=== PATIENT | male | born 1995 | race Caucasian/White ===

== ENCOUNTER 2020-11-12 15:03 | Emergency (ER) | payer BC, SELFPAY ==
[2020-11-12] VITALS (7 sets, daily range): BP systolic 115–131; BP diastolic 72–79; PULSE 106–122; RESP 18–24; TEMP 37.1; O2SAT 97–100; BMI 24.0
--- NOTE | 2020-11-12 15:06 | ECG_ITS ---
APPROVED REPORT Exam: Resting ECG HR:119 bpm ECG Measurements Heart Rate 119 AXES AR 138 P 65 QRSd 74 QRS 86 QT 304 T 58 QTc 427 Conclusion Sinus tachycardia Possible Left atrial enlargement Borderline ECG Electronically signed by : Chris Holguin, 11/14/2020 21:24:07
--- NOTE | 2020-11-12 15:22 | HMH.EDGENADL ---
ED Disposition Clinical Impression: Atypical chest pain, Sinus tachycardia Disposition: Home, Self-Care Condition on Discharge: Good Instructions: DI for Atypical Chest Pain Additional Instructions: [id number] Prilosec daily for 1 week. Additional instructions for CHEST PAIN: See your physician as soon as possible for further evaluation. Return immediately if worsening chest pain, vomiting, shortness of breath, fever, coughing of blood. Referrals: PCP,No [Primary Care Provider] - - Critical Care Critical Care Time: No Attestation: On , the high probability of a clinically significant, sudden or life threatening deterioration of the following system(s) required my full and direct attention, intervention and personal management. The time I documented below is in addition to time spent performing reported procedures but includes the following listed in this critical care notation. Medical Decision Making - Michele Inquiry Pt receiving controlled substance: No Vital Signs: 11/12/20 15:06 11/12/20 15:35 11/12/20 16:00 Temperature 98.7 F Temperature Source Oral Pulse Rate 121 H 114 H Pulse Rate [Left Radial] 122 H Respiratory Rate 18 19 21 Blood Pressure Blood Pressure [Right Arm] 131/78 Blood Pressure Mean Blood Pressure Mean [Right Arm] 95 Blood Pressure Source [Right Arm] Automatic Cuff Blood Pressure Position [Right Arm] Sitting 02 Sat by Pulse Oximetry 99 98 97 Oxygen Delivery Method Room Air 11/12/20 16:34 11/12/20 16:59 11/12/20 17:30 Temperature Temperature Source Pulse Rate 113 H 122 H 112 H Pulse Rate [Left Radial] Respiratory Rate 23 22 Blood Pressure 115/72 128/79 123/76 Blood Pressure [Right Arm] Blood Pressure Mean 86 92 88 Blood Pressure Mean [Right Arm] Blood Pressure Source [Right Arm] Blood Pressure Position [Right Arm] 02 Sat by Pulse Oximetry 100 100 99 Oxygen Delivery Method - Lab Data Lab Results 11/12/20 15:20: WBC 10.0, RBC 5.48, Hgb 17.3, Hct 50.7, MCV 92.5, MCH 31.5 H, MCHC 34.0, RDW 12.7, Plt Count 170, MPV 8.0, Neut % (Auto) 93.4 H, Lymph % (Auto) 3.5 L, [place] % (Auto) 2.5, Eos % (Auto) 0.4, Baso % (Auto) 0.2, Neut # (Auto) 9.3 H, Lymph # (Auto) 0.4 L, [place] # (Auto) 0.3, Eos # (Auto) 0.0, Baso # (Auto) 0.0, Total Counted 100, Neutrophils % (Manual) 93 H, Band Neutrophils % 1.0, Lymphocytes % (Manual) 4 L, Monocytes % (Manual) 2, Platelet Estimate Normal, RBC Morphology Normal 11/12/20 15:20: D-Dimer 0.62 H 11/12/20 15:20: Sodium 139, Potassium 4.3, Chloride 102, Carbon Dioxide 28, Anion Gap 13.3, BUN 21 H, Creatinine 0.90, Estimated Creat Clear 115, Estimated GFR 105, Est GFR ( Amer) 127, Glucose 126 H, Calcium 9.5, Troponin I < 0.01 11/12/20 15:20: TSH 0.82, Free T4 Index 3.5 L, Thyroxine (T4) 11.8 H, T3 Uptake 30 Result diagrams: 11/12/20 15:20 11/12/20 15:20 Orders (Tests/Meds): ED MEDICATIONS Discontinued Medications Generic Name Dose Route Start Last Admin Trade Name Freq PRN Reason Stop Dose Admin Iopamidol 70 ml 11/12/20 16:28 11/12/20 16:30 Iopamidol-370 (76%);100ml Bottle IV 11/12/20 16:29 70 ml ONCE ONE Administration Iopamidol 40 ml 11/12/20 16:28 11/12/20 16:30 Iopamidol-300 (61%) 50ml Vial IV 11/12/20 16:29 40 ml ONCE ONE Administration Protocol Sodium Chloride 10 ml 11/12/20 16:28 11/12/20 16:30 Sodium Chloride 0.9% 10ml Syr (Rad Only) IV 11/12/20 16:29 10 ml ONCE ONE Administration ORDERS Category Date Time Status Covid-19 Nasal PCR (H) Routine Lab 11/12/20 15:47 Received Troponin I Q3H Lab 11/12/20 21:45 Ordered - Radiology Data #1 Image(s): Chest Image Reviewed: Yes I reviewed the patient's radiology image Preliminary Findings: Normal/NAD - CT Data CT Scan: Chest (CTA) Time Received: 16:[address] Reviewed: Yes: I have viewed the radiologist's interpretation Findings Narrative: PROCEDURE: CT ANGIO CHEST
--- NOTE | 2020-11-12 15:33 | XR_ITS ---
PROCEDURE: XR CHEST 2V CLINICAL HISTORY: cp COMPARISON: No exams were available for comparison FINDINGS: The cardiomediastinal silhouette and pulmonary vascularity are within normal limits. The lungs are clear without infiltrates, suspicious nodules, or pleural effusions. No acute bony abnormalities. IMPRESSION: No acute findings. Dictated by: Joe Pierre MD 11/12/2020 16:10 Joe Pierre MD in [facility] 11/12/2020 16:10
--- NOTE | 2020-11-12 15:36 | PC.NURSE ---
pt going to rad.
[2020-11-12 15:41] LABS: Basophils % 0.2 % (0.1-2.0); Eosinophils % 0.4 % (0.1-12.0); Hematocrit 50.7 % (42.0-52.0); Hemoglobin 17.3 g/dL (14.1-18.0); Lymphocytes # 0.4 K/mm3 (0.7-4.5); Lymphocytes % 3.5 % (10-50); Mean Corpuscular Hemoglobin 31.5 pg (27.0-31.2); Mean Corpuscular Volume 92.5 fl (80-94); Monocytes # 0.3 K/mm3 (0.1-1.0); Monocytes % 2.5 % (1.7-9.3); Neutrophils # 9.3 K/mm3 (1.8-7.8); Neutrophils % 93.4 % (37.0-80.0); Platelet Count 170 K/mm3 (142-424); Red Blood Count 5.48 M/mm3 (4.60-6.20); Red Cell Distribution Width 12.7 % (11.5-17.5)
[2020-11-12 15:43] LABS: MANUAL DIFFERENTIAL MANUAL DIFFERENTIAL (MANUAL DIFF)
--- NOTE | 2020-11-12 15:44 | PC.NURSE ---
pt returning from rad.
[2020-11-12 15:45] LABS: Blood Urea Nitrogen 21 mg/dl (9-20); Carbon Dioxide 28 mmol/L (22.0-30.0); Creatinine Clearance Estimated 115 mL/min (50-200); Estimated Glomerular Filt Rate 105 ml/min (>60); GFR (African American) 127 ML/MIN (>60)
[2020-11-12 15:50] LABS: D-Dimer 0.62 ug/mL (0.0-0.5)
--- NOTE | 2020-11-12 15:51 | PC.NURSE ---
COVID swab sent to lab.
--- NOTE | 2020-11-12 16:01 | CT_ITS ---
PROCEDURE: CT ANGIO CHEST CLINCIAL INDICATION: chest pain, elev d-dimer COMPARISON: CR XR CHEST 2V from 11/12/2020 TECHNIQUE: IV Contrast: 70ML Isovue 370 Axial images obtained with sagittal and coronal reformats. All CT scans at the facility use one or more dose reduction, viz: automated exposure control, ma/kV adjustment per patient size (including targeted exams where dose is matched to indication, i.e. head), or iterative reconstruction technique. FINDINGS: HEART AND MEDIASTINAL STRUCTURES: No evidence of pulmonary embolus, aortic aneurysm, or aortic dissection. LUNGS AND PLEURAL SPACES: Unremarkable. BONY STRUCTURES: No acute bony abnormalities apparent. UPPER ABDOMEN: Unremarkable. ADDITIONAL FINDINGS: Mild gynecomastia IMPRESSION: No acute finding Dictated by: Joe Pierre MD 11/12/2020 16:43 Joe Pierre MD in [facility] 11/12/2020 16:43
[2020-11-12 16:08] LABS: Anion Gap 13.3 mEq/L (5-15); Calcium 9.5 mg/dl (8.4-10.2); Chloride 102 mmol/L (98-107); Glucose 126 mg/dl (74-100); Potassium 4.3 mmoL/L (3.5-5.1); Sodium 139 mmol/L (136-145); Troponin I < 0.01 ng/ml (0.00-0.034)
[2020-11-12 16:09] LABS: Lymphocytes % 4 % (10-50); Monocytes % 2 % (2-9); Neutrophils % 93 % (42-76); RBC Morphology Normal; Total Cells Counted 100
[2020-11-12 16:10] LABS: Platelet Estimate Normal
--- NOTE | 2020-11-12 16:15 | PC.NURSE ---
pt going to rad for CT
--- NOTE | 2020-11-12 16:28 | PC.NURSE ---
pt returning from rad.
[2020-11-12 17:34] LABS: Free Thyroxine Index 3.5 ug/dL (5.93-13.13); T4 (Thyroxine) 11.8 ug/dl (5.53-11.0); Triiodothryronine (T3) Uptake 30 % (23.5-40.5)
--- NOTE | 2020-11-12 17:41 | PC.NURSE ---
MD advised to cancel repeat troponin on this pt. Lab has been advised.
[2020-11-12 17:48] LABS: Thyroid Stimulating Hormone 0.82 uIU/mL (0.465-4.68)
== END 2020-11-12 18:05 | disposition home or self-care (01) ==
PROVIDERS: Emergency Provider Emergency Medicine
DX: Z20.822 Contact with and (suspected) exposure to COVID-19 (principal); R07.89 Other chest pain; R00.0 Tachycardia, unspecified; Z88.1 Allergy status to other antibiotic agents
CPT/HCPCS: 71046; 71275; 80048; 84436; 84443; 84479; 84484; 85007; 85025; 85378; 93005; 99283; Q9967; U0003

== ENCOUNTER → 2021-04-28 16:42 | Outpatient (CLI) | payer BC, SELFPAY | PROVIDERS: Visit Provider Nurse Practitioner | DX: Z20.822 Contact with and (suspected) exposure to COVID-19 (principal) | CPT/HCPCS: C9803; U0003; U0005 ==

== ENCOUNTER 2024-02-09 12:31 | Emergency (ER) | payer SELFPAY ==
[2024-02-09 12:45] VITALS: BP 149/84; PULSE 101; RESP 18; TEMP 36.9; O2SAT 97; BMI 22.3
--- NOTE | 2024-02-09 13:04 | EXP.UTC ---
Discharge Plan Disposition Patient Disposition: Home, Self-Care Condition: Good Prescriptions Prescriptions: New methylprednisolone [Medrol (Ritesh)] 4 mg tablets,dose pack See Rx Instructions .Route .COMPLEX 6 Days Qty: 21 0RF Rx Instructions: taper pack; Referrals Follow up/Referrals: Provider,Referral, MD [Primary Care Provider] - See instructions Activity Restrictions/Add. Instructions Additional Instructions/Restrictions: Over the Benadryl may help with itching and rash Start oral Medrol pack tomorrow Oatmeal bathes may help with itching Stop taking the Pre-Work out and avoid these types of suppliments Follow up with your Family Doctor if needed Clinical Impressions Clinical Impression: Rash and nonspecific skin eruption Instructions Patient Instructions: DI for Rash Print Language Print Language: Bengali Discharge ED Provider: Asia Sam [facility] General Stated complaint: allergic reaction Mode of Arrival: Ambulatory Source of Information: Patient Limitations: No Limitations Time Seen by Provider: 02/09/24 13:04 Description of Symptoms (Recalled from Triage Doc. by RN): PATIENT C/O RASH TO CHEST, BACK AND THIGHS SINCE YESTERDAY. HE THINKS HE IS HAVING A REACTION TO A PRE-WORKOUT POWDER HEENT Symptoms (Recalled from RN notes): No Resp Symptoms (Recalled from RN notes): No Skin Symptoms (Recalled from RN notes): Yes MS Symptoms (Recalled from RN notes): No Functional Status (Recalled from RN notes): WNL History of Present Illness Provider Complaint: Patient states that he started taking a prework out powder yesterday and broke out in hives states he wasnt sure if that caused it or not and took an morteza-hive and it got a little better but this morning he took the prework out again and broke out again so he came in to get checked worried about having the reaction Related Data Previous Rx's ?Medication ?Instructions ?Recorded methylprednisolone 4 mg tablets in See Rx Instructions .Route 02/09/24 a dose pack (Medrol (Ritesh)) .COMPLEX 6 days #21 tabs Allergies Allergy/AdvReac Type Severity Reaction Status Date / Time amoxicillin Allergy Verified 05/28/21 13:05 Worker's Comp Is this a Worker's Comp case?: No [facility] Disclaimer: The information contained in this section may have been updated after the patient was seen, as this information can be updated by other users. Medical History (Updated 02/09/24 @ 13:18 by Asia Sam APRN) Heart murmur Asthma Surgical History History of tympanostomy tube placement Social History Smoking Status: Never smoker alcohol intake: current alcohol intake frequency: a few times a month current occupational status: employed Travel in the last 8 weeks: None ROS Obtained: Yes All systems reviewed & no additional complaints except as documented and Yes Systems reviewed as appropriate & no additional complaints except as documented Constitutional Constitutional: Reports system reviewed and no additional complaints, except as documented and Reports as per HPI ENT Ears, Nose, Mouth, and Throat: Reports system reviewed and no additional complaints, except as documented and Reports as per HPI Cardiovascular Cardiovascular: Reports system reviewed and no additional complaints, except as documented and Reports as per HPI Respiratory Respiratory: Reports system reviewed and no additional complaints, except as documented and Reports as per HPI Gastrointestinal Gastrointestingal: Reports system reviewed and no additional complaints, except as documented and as per HPI Integumentary/Breasts Skin/Breast: Reports system reviewed and no additional complaints, except as documented, Reports as per HPI, Reports pruritus and Reports rash Physical Exam General General appearance: alert and in no apparent distress ENT ENT exam: Present mucous membranes moist Expanded ENT Exam Nose exam: Absent sinus tenderness Mouth exam: Present normal external inspection and tongue normal; Absent drooling, lip swelling, tongue elevation or tongue swelling Teeth exam: Present normal inspection Respiratory Respiratory exam: Present normal lung sounds bilaterally; Absent respiratory distress or wheezes Cardiovascular Cardiovascular exam: Present regular rate, normal rhythm and normal heart sounds Neurological Exam Neurological exam: Present alert, oriented X3 and normal gait Skin Skin exam: Present rash (urticaria like rash noted on abdomen, back and legs reports rash a little better since taking allergra-hives at home) Medical Decision Making Michele Inquiry Pt receiving controlled substance: No Michele was queried for this patient: No Vital Signs: 02/09/24 12:45 Temperature 98.4 F Temperature Source Oral Pulse Rate [Left Brachial] 101 H Respiratory Rate 18 Blood Pressure [Left Arm] 149/84 H Blood Pressure Mean [Left Arm] 105 Blood Pressure Source [Left Arm] Automatic Cuff Blood Pressure Position [Left Arm] Sitting 02 Sat by Pulse Oximetry 97 Oxygen Delivery Method Room Air
[2024-02-09] MEDS: FAMOTIDINE 20MG TABLET 20 MG PO (13:14)
[2024-02-09] MEDS: METHYLPREDNISOLONE SOD SUCC 125MG VIAL 125 MG IM (13:14)
[2024-02-09 13:15] VITALS: BP 149/84; PULSE 101; RESP 18; TEMP 36.9; O2SAT 97
== END 2024-02-09 13:41 | disposition home or self-care (01) ==
PROVIDERS: Emergency Provider Nurse Practitioner
DX: R21 Rash and other nonspecific skin eruption (principal)
CPT/HCPCS: 96372; 99204; 99212; G0463; J2919

== ENCOUNTER 2024-02-17 00:51 | Emergency (ER) | payer SELFPAY ==
[2024-02-17 00:52] VITALS: BP 138/98; PULSE 97; RESP 16; TEMP 36.8; O2SAT 99; BMI 39.0
--- NOTE | 2024-02-17 00:54 | ED_ITS ---
Discharge Plan Disposition Patient Disposition: Home, Self-Care Prescriptions Prescriptions: No Action methylprednisolone [Medrol (Ritesh)] 4 mg tablets,dose pack See Rx Instructions .Route .COMPLEX 6 Days Qty: 21 0RF Rx Instructions: taper pack; Referrals Follow up/Referrals: Provider,MD Adolfo [Primary Care Provider] - See instructions Activity Restrictions/Add. Instructions Additional Instructions/Restrictions: Please take Tylenol and ibuprofen as needed for headache. Please follow-up with your primary care provider. Please return to the emergency department if you develop any new or worsening symptoms or become concerned for your health. Clinical Impressions Clinical Impression: Headache Qualifiers: Headache type: unspecified Print Language Print Language: Frisian Discharge ED Provider: Leonidas Heredia General Adult HPI General Chief complaint: Headache Stated complaint: dizzy and headache Time Seen by Provider: 02/17/24 00:54 History of Present Illness HPI narrative: 28-year-old male presents for a headache for a couple of days. He reports that he had an allergic reaction to some protein powder about a week ago and was put on a Medrol Dosepak. He reports that after he started the steroids he got a headache and felt a little dizzy. He stopped the steroids but the symptoms have continued. He denies any vision changes, neurologic changes. Reports that he sometimes gets headaches but not frequently. He took some Tylenol about 24 hours ago but otherwise has taken no medications for symptoms. Related Data Previous Rx's ?Medication ?Instructions ?Recorded methylprednisolone 4 mg tablets in See Rx Instructions .Route 02/09/24 a dose pack (Medrol (Ritesh)) .COMPLEX 6 days #21 tabs Allergies Allergy/AdvReac Type Severity Reaction Status Date / Time amoxicillin Allergy Verified 05/28/21 13:05 [facility] Disclaimer: The information contained in this section may have been updated after the patient was seen, as this information can be updated by other users. Medical History (Updated 02/17/24 @ 02:02 by Leonidas Heredia MD) Heart murmur Asthma Surgical History History of tympanostomy tube placement Social History Smoking Status: Never smoker alcohol intake: current alcohol intake frequency: a few times a month current occupational status: employed Travel in the last 8 weeks: None ROS Obtained: Yes All systems reviewed & no additional complaints except as documented Physical Exam General General appearance: alert and in no apparent distress Head Head exam: atraumatic and normocephalic Eye Eye exam: Present normal appearance, PERRL and EOMI ENT ENT exam: Present normal oropharynx and normal external ear exam Neck Neck exam: Present normal inspection and full ROM Chest Chest inspection: Present normal inspection and symmetric chest wall rise; Absent tenderness Respiratory Respiratory exam: Present normal lung sounds bilaterally; Absent respiratory distress Cardiovascular Cardiovascular exam: Present regular rate and normal rhythm Abdominal Exam Abdominal exam: Present soft; Absent distention, tenderness or guarding Extremities Exam Extremities exam: Present normal inspection; Absent edema or joint swelling Back Exam Back exam: Present normal inspection; Absent tenderness Neurological Exam Neurological exam: Present alert and oriented X3; Absent motor sensory deficit Psychiatric Psychiatric exam: Present normal affect and normal mood Skin Skin exam: Present warm, dry and normal color Lymphatic Lymphatic Findings: no adenopathy Medical Decision Making Medical Records Medical records reviewed: Yes I reviewed the patient's medical records. Michele Inquiry Pt receiving controlled substance: No Michele was queried for this patient: No Vital Signs: 02/17/24 00:52 02/17/24 02:03 Temperature 98.2 F 98.2 F Temperature Source Oral Oral Pulse Rate 92 H Pulse Rate [Left Radial] 97 H Respiratory Rate 16 16 Blood Pressure 121/79 Blood Pressure [Right Arm] 138/98 H Blood Pressure Mean [Right Arm] 111 Blood Pressure Source Automatic Cuff Blood Pressure Source [Right Arm] Automatic Cuff Blood Pressure Position Sitting Blood Pressure Position [Right Arm] Sitting 02 Sat by Pulse Oximetry 99 Oxygen Delivery Method Room Air Room Air Lab Data Lab results reviewed: Yes I reviewed the patient's lab results. Orders (Tests/Meds): ED MEDICATIONS Discontinued Medications Generic Name Dose Route Start Last Admin Trade Name Yunierq PRN Reason Stop Dose Admin Acetaminophen 1,000 mg 02/17/24 01:01 02/17/24 01:12 Acetaminophen 500mg Tab PO 02/17/24 01:02 1,000 mg ONCE ONE Administration Diphenhydramine HCl 25 mg 02/17/24 01:01 02/17/24 01:12 Diphenhydramine 25mg Capsule PO 02/17/24 01:02 25 mg ONCE ONE Administration Ketorolac Tromethamine 30 mg 02/17/24 01:01 02/17/24 01:12 Ketorolac 30mg/Ml Vial IM 02/17/24 01:02 30 mg ONCE ONE Administration Metoclopramide HCl 10 mg 02/17/24 01:01 02/17/24 01:12 Metoclopramide Hcl 10mg/2ml Vial IM 02/17/24 01:02 10 mg ONCE ONE Administration Medical Decision Narrative: 28-year-old male presents with a couple days of headache after recently taking steroids. History was obtained via interactive discussion with patient. On arrival, patient is [afebrile, hemodynamically stable, satting appropriately, alert, oriented x4, GCS 15], moving all extremities spontaneously. Full physical exam performed and significant for no physical exam abnormalities Differential includes but is not limited to tension headache, migraine headache, medication side effect. Patient was given p.o. Tylenol, p.o. Benadryl, IM Toradol, IM Reglan for symptomatic management and correction of underlying abnormalities. On reassessment patient reports symptomatic resolution. Patient discharged in stable condition with return precautions. Procedures Risk/Benefits of Procedure(s) Were Explained: Yes Critical Care Critical Care Time Critical Care Time: No
[2024-02-17] MEDS: diphenhydrAMINE 25MG CAPSULE 25 MG PO (01:12)
[2024-02-17] MEDS: KETOROLAC 30MG/ML VIAL 30 MG IM (01:12)
[2024-02-17] MEDS: METOCLOPRAMIDE HCL 10MG/2ML VIAL 10 MG IM (01:12)
[2024-02-17] MEDS: ACETAMINOPHEN 500MG TAB 1000 MG PO (01:12)
--- NOTE | 2024-02-17 02:01 | PC.NURSE ---
Pt states his headache is much better after medication
[2024-02-17 02:03] VITALS: BP 121/79; PULSE 92; RESP 16; TEMP 36.8; O2SAT 99
== END 2024-02-17 02:06 | disposition home or self-care (01) ==
PROVIDERS: Emergency Provider Emergency Medicine
DX: R51.9 Headache, unspecified (principal); R42 Dizziness and giddiness
CPT/HCPCS: 96372; 99283; J1885; J2765

== ENCOUNTER 2024-04-14 09:54 | Emergency (ER) | payer SELFPAY ==
[2024-04-14 09:56] VITALS: BP 128/88; PULSE 115; RESP 18; TEMP 36.6; O2SAT 99; BMI 22.3
--- NOTE | 2024-04-14 10:22 | XR_ITS ---
FINAL REPORT CLINICAL HISTORY: dog bite, pain FINDINGS: Right hand THREE VIEW FINDINGS: Three views show no evidence of an acute, displaced fracture or dislocation of the visualized bony architecture. The joint spaces appear normal. No radiopaque foreign body is present. IMPRESSION: Unremarkable exam. Authenticated and ERN
[2024-04-14 10:30] VITALS: BP 126/83; PULSE 96; O2SAT 97
[2024-04-14] MEDS: TET/DIPHTH/PERT-ADULT 0.5ML SYRINGE 0.5 ML IM (10:30)
[2024-04-14] MEDS: LIDOCAINE 1% 20ML MDV 20 ML IJ (10:30)
[2024-04-14] MEDS: ACETAMINOPHEN 500MG TAB 1000 MG PO (10:30)
[2024-04-14] MEDS: IBUPROFEN 400 MG TABLET 800 MG PO (10:30)
[2024-04-14] MEDS: DOXYCYCLINE HYCL 100 MG TABLET PO (10:30)
--- NOTE | 2024-04-14 10:33 | PC.NURSE ---
rounded on pt. no needs at this time. Tracy was bs with pt cleaning hand.
--- NOTE | 2024-04-14 10:35 | ED_ITS ---
Discharge Plan Disposition Patient Disposition: Home, Self-Care Condition: Good Prescriptions Prescriptions: New doxycycline hyclate 100 mg tablet 100 mg PO BID 10 Days Qty: 20 0RF No Action methylprednisolone [Medrol (Ritesh)] 4 mg tablets,dose pack See Rx Instructions .Route .COMPLEX 6 Days Qty: 21 0RF Rx Instructions: taper pack; Referrals Follow up/Referrals: Goyo Mak MD [Primary Care Provider] - See instructions Activity Restrictions/Add. Instructions Additional Instructions/Restrictions: You were evaluated in the emergency department today. 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 Follow-up very closely with your primary care provider for recheck of your wound. Take Tylenol and ibuprofen every 4-6 hours at home as needed for pain. Sutures will need to be removed in approximately 8 to 10 days. Do not submerge under any water. Keep the wound clean and dry. Monitor for any signs of infection such as redness, warmth, or pus draining from the wound Clinical Impressions Clinical Impression: Dog bite of hand, Finger laceration Instructions Patient Instructions: DI for Laceration Repair, DI for Animal Bites, DI for Dog Bite Print Language Print Language: [place] Discharge ED Provider: Verito Hills General Adult HPI General Chief complaint: Wound/Laceration Stated complaint: dog bite right hand Time Seen by Provider: 04/14/24 10:02 Mode of Arrival: Ambulatory Source of Information: Patient and Parent(s) Limitations: No Limitations Description of Symptoms (Recalled from ER Triage Doc. by RN): Patient states his dogs were in a fight and he tried to break them up and was bit on the right hand between the index and middle finger. Patient has laceration between fingers. Bleeding controlled upon arrival. Patient states it was his dog and that they are up to date on all vaccines. History of Present Illness HPI narrative: This patient is a 28-year-old male who denies significant past medical history presenting to the emergency department for evaluation with concern for dog bite to the right hand. It was his mixed breed dog that bit him at home. He is right-hand dominant. His dog is up-to-date on vaccinations including rabies. He is not sure when his last tetanus shot was. He notes wounds to the right hand but no other traumatic injuries. No numbness, tingling, or other concerns Related Data Previous Rx's ?Medication ?Instructions ?Recorded methylprednisolone 4 mg tablets in See Rx Instructions .Route 02/09/24 a dose pack (Medrol (Ritesh)) .COMPLEX 6 days #21 tabs doxycycline hyclate 100 mg tablet 100 mg PO BID 10 days #20 tabs 04/14/24 Allergies Allergy/AdvReac Type Severity Reaction Status Date / Time amoxicillin Allergy Verified 05/28/21 13:05 [facility] Disclaimer: The information contained in this section may have been updated after the patient was seen, as this information can be updated by other users. Medical History Heart murmur Asthma Surgical History History of tympanostomy tube placement Social History Smoking Status: Never smoker alcohol intake: current alcohol intake frequency: a few times a month current occupational status: employed Travel in the last 8 weeks: None ROS Obtained: Yes All systems reviewed & no additional complaints except as documented Physical Exam General General appearance: alert and in no apparent distress Head Head exam: atraumatic and normocephalic Eye Eye exam: Present normal appearance, PERRL and EOMI ENT ENT exam: Present normal exam, normal oropharynx, mucous membranes moist and normal external ear exam Neck Neck exam: Present normal inspection, full ROM and trachea midline; Absent tenderness Chest Chest inspection: Present normal inspection and symmetric chest wall rise; Absent tenderness Respiratory Respiratory exam: Present normal lung sounds bilaterally; Absent respiratory distress, wheezes, stridor or accessory muscle use Cardiovascular Cardiovascular exam: Present regular rate and normal rhythm Abdominal Exam Abdominal exam: Present soft; Absent distention, tenderness or guarding Extremities Exam Extremities exam: Present full ROM and normal capillary refill; Absent tenderness or edema Expanded Upper Extremity Exam Right: Hand L/R back image: 2 1. 1.5 cm linear laceration that is hemostatic 2. Scattered very superficial abrasions that are hemostatic Comment: Neurovascularly intact distally with full intact range of motion of all of his digits Back Exam Back exam: Present normal inspection and full ROM; Absent tenderness Neurological Exam Neurological exam: Present alert, oriented X3, CN II-XII intact and normal gait; Absent motor sensory deficit Psychiatric Psychiatric exam: Present normal affect and normal mood Skin Skin exam: Present warm and dry Medical Decision Making Medical Records Medical records reviewed: Yes I reviewed the patient's medical records. Screening: Per USPSTF and CDC recommendations, given the prevalence of disease in our region, it is our hospital?s policy to screen for HIV and viral Hepatitis for all patients aged 18 and over and those with ongoing risk factors. Michele Inquiry Pt receiving controlled substance: No Vital Signs: 04/14/24 09:56 04/14/24 10:30 04/14/24 11:00 Temperature 97.9 F Temperature Source Oral Pulse Rate 96 H 96 H Pulse Rate [Left] 115 H Respiratory Rate 18 Blood Pressure 126/83 143/83 H Blood Pressure [Right Arm] 128/88 Blood Pressure Mean 98 92 Blood Pressure Mean [Right Arm] 101 Blood Pressure Source Blood Pressure Source [Right Arm] Automatic Cuff Blood Pressure Position 02 Sat by Pulse Oximetry 99 97 96 Oxygen Delivery Method Room Air Room Air Room Air 04/14/24 11:30 04/14/24 12:00 04/14/24 12:20 Temperature 98.0 F Temperature Source Oral Pulse Rate 99 H 103 H 99 H Pulse Rate [Left] Respiratory Rate 18 Blood Pressure 134/77 132/82 132/82 Blood Pressure [Right Arm] Blood Pressure Mean 96 95 Blood Pressure Mean [Right Arm] Blood Pressure Source Automatic Cuff Blood Pressure Source [Right Arm] Blood Pressure Position Sitting 02 Sat by Pulse Oximetry 97 99 Oxygen Delivery Method Room Air Room Air Lab Data Lab results reviewed: Yes I reviewed the patient's lab results. Orders (Tests/Meds): ED MEDICATIONS Discontinued Medications Generic Name Dose Route Start Last Admin Trade Name Yunierq PRN Reason Stop Dose Admin Acetaminophen 1,000 mg 04/14/24 10:22 04/14/24 10:30 Acetaminophen 500mg Tab PO 04/14/24 10:23 1,000 mg ONCE ONE Administration Bacitracin 1 gm 04/14/24 12:04/14/24 12:18 Bacitracin Zinc Oint 30gm Tube TP 04/14/24 12:10 1 gm ONCE ONE Administration Doxycycline Hyclate 100 mg 04/14/24 10:23 04/14/24 10:30 Doxycycline Hycl 100 Mg Tablet PO 04/14/24 10:24 100 mg ONCE ONE Administration Ibuprofen 800 mg 04/14/24 10:22 04/14/24 10:30 Ibuprofen 400 Mg Tablet PO 04/14/24 10:23 800 mg ONCE ONE Administration Lidocaine HCl 20 ml 04/14/24 10:24 04/14/24 10:30 Lidocaine 1% 20ml Mdv IJ 04/14/24 10:25 20 ml ONCE ONE Administration Tetanus/Reduced Diphtheria/Acell Pertussis 0.5 ml 04/14/24 10:22 04/14/24 10:30 Tet/Diphth/Pert-Adult 0.5ml Syringe IM 04/14/24 10:23 0.5 ml .ONCE ONE Administration ORDERS Category Date Time Status Hand XR right minimum 3 views [XR hand RT min 3V] Stat Exams 04/14/24 10:22 Completed Medical Decision Narrative: In summary, this patient is a 28-year-old male presenting to the Emergency Department for evaluation of dog bite to the right hand. Differential diagnoses considered include but are not limited to laceration, abrasion, foreign body, neurovascular injury, tendon injury, fracture. Ruling out the most morbid conditions drove assessment. On exam, the patient has superficial wounds to the right fingers and a 1.5 cm linear laceration between the second and third digits of the right hand. All wounds are hemostatic. He is neurovascularly intact with full intact range of motion of all of his digits. Dog is up-to-date with vaccinations including rabies. Tetanus booster will be administered to the patient here. He is allergic to amoxicillin, so he was given oral doxycycline for antibiotic prophylaxis. I gave him oral Tylenol and ibuprofen for pain. After informed consent was obtained and risk versus benefit explained, decision was made to proceed with loose approximation of the wound between his fingers after thorough washout with Betadine. Workup included x-rays of the right hand. I independently interpreted x-ray prior to the radiologist read and noted no acute fracture. Please see their read for final interpretation. After thorough irrigation with sterile saline and Betadine, his laceration was repaired with loose approximation. I advised him that we would not closely approximate this given dog bites are high risk for infection. He was prescribed doxycycline given his amoxicillin allergy. He remained neurovascularly intact after laceration repair with no complications. He was discharged home with strict return precautions, instructions for wound care, and instructions for close outpatient follow-up. Procedures Risk/Benefits of Procedure(s) Were Explained: Yes Laceration Laceration 1: Site: hand Side (If applicable): right Size (cm): 1.5 Description: linear Depth: simple, single layer Local Anesthetic: lidocaine 1% Amount of anesthesia used (mL): 1 Pre-repair: wound explored, irrigated extensively (sterile saline and betadine) and deep structures intact Skin layer closed with: nylon Size (cm): 4-0 Number of sutures: 1 Technique: simple, interrupted Critical Care Critical Care Time Critical Care Time: No
--- NOTE | 2024-04-14 10:37 | PC.NURSE ---
portable xray at
[2024-04-14 11:00] VITALS: BP 143/83; PULSE 96; O2SAT 96
[2024-04-14 11:30] VITALS: BP 134/77; PULSE 99; O2SAT 97
--- NOTE | 2024-04-14 11:36 | PC.NURSE ---
PT AND S.O. UPDATED ON POC, NO NEEDS AT THIS TIME
[2024-04-14 12:00] VITALS: BP 132/82; PULSE 103; O2SAT 99
[2024-04-14] MEDS: BACITRACIN ZINC OINT 30GM TUBE TP (12:18)
[2024-04-14 12:20] VITALS: BP 132/82; PULSE 99; RESP 18; TEMP 36.7; O2SAT 99
== END 2024-04-14 12:24 | disposition home or self-care (01) ==
PROVIDERS: Emergency Provider Emergency Medicine; PCP Family Medicine
DX: S61.451A Open bite of right hand, initial encounter (principal); W54.0XXA Bitten by dog, initial encounter; Z23 Encounter for immunization
CPT/HCPCS: 73130; 90471; 90715; 99283

== ENCOUNTER 2024-05-21 13:21 | Emergency (ER) | payer BC, SELFPAY ==
[2024-05-21 13:23] VITALS: BP 124/80; PULSE 80; RESP 16; TEMP 36.7; O2SAT 99; BMI 20.5
--- NOTE | 2024-05-21 14:17 | XR_ITS ---
PROCEDURE INFORMATION: Exam: XR Right Hand Exam date and time: 05/21/2024 2:11 PM Age: 28 years old Clinical indication: Pain; Hand; Right; Additional info: Right index finger abrasion multiple TECHNIQUE: Imaging protocol: Radiologic exam of the right hand. Views: 3 or more views. Frontal Oblique Lateral COMPARISON: CR XR HAND RT MIN 3V 04/14/2024 10:33 AM FINDINGS: Bones/joints: No visualized bony fracture or dislocation. No evidence for a joint effusion. Soft tissues: The soft tissue appear unremarkable. Notes: If there is further concern, recommend follow-up radiographs or MRI for complete assessment. IMPRESSION: No fracture or dislocation.
[2024-05-21 14:29] VITALS: BP 114/69; PULSE 82; O2SAT 97
--- NOTE | 2024-05-21 14:49 | ED_ITS ---
<Statement entered by Verito Hills DO - 05/21/24 15:16> I was consulted by the [facility], and we discussed the complexity of the problems being addressed. I approved the treatment and management plan for this patient's care in the emergency department, thus performing a substantive portion of the medical decision making. I independently interpreted x-ray prior to radiology read and noted no acute fracture or dislocation. Please see radiology read for final interpretation. Verito Hills DO Discharge Plan Disposition Patient Disposition: Home, Self-Care Condition: Good Prescriptions Prescriptions: New bacitracin 500 unit/gram ointment 1 applic topical BID 5 Days Qty: 14 0RF No Action methylprednisolone [Medrol (Ritesh)] 4 mg tablets,dose pack See Rx Instructions .Route .COMPLEX 6 Days Qty: 21 0RF Rx Instructions: taper pack; doxycycline hyclate 100 mg tablet 100 mg PO BID 10 Days Qty: 20 0RF Referrals Follow up/Referrals: Goyo Mak MD [Primary Care Provider] - See instructions Print Language Print Language: Divehi Discharge ED Provider: Verito Hills General Adult HPI General Chief complaint: Extremity Injury, Upper Stated complaint: AO-05/18- pain and swelling R index finger Time Seen by Provider: 05/21/24 14:17 Mode of Arrival: Ambulatory Source of Information: Patient Limitations: No Limitations Description of Symptoms (Recalled from ER Triage Doc. by RN): Reports pain in his right index finger since . History of Present Illness HPI narrative: Patient presents with pain in his right index finger, proximal to the nail. He reports that on he hit his finger on metal several times. He denies any swelling. He has minimal erythema. He has full range of motion. Tetanus is up-to-date. complaint: Right index finger discomfort Onset (ago): day(s) Location: upper extremity (Right index) Radiation: non-radiation Severity: mild Consistency: constant Relieving factors: none Exacerbating factors: none Associated symptoms: negative fever/chills Related Data Previous Rx's ?Medication ?Instructions ?Recorded methylprednisolone 4 mg tablets in See Rx Instructions .Route 02/09/24 a dose pack (Medrol (Ritesh)) .COMPLEX 6 days #21 tabs doxycycline hyclate 100 mg tablet 100 mg PO BID 10 days #20 tabs 04/14/24 bacitracin 500 unit/gram topical 1 applic topical BID 5 days #14 05/21/24 ointment grams Allergies Allergy/AdvReac Type Severity Reaction Status Date / Time amoxicillin Allergy Verified 05/28/21 13:05 [facility] Disclaimer: The information contained in this section may have been updated after the patient was seen, as this information can be updated by other users. Medical History Heart murmur Asthma Surgical History History of tympanostomy tube placement Social History Smoking Status: Never smoker alcohol intake: current alcohol intake frequency: a few times a month current occupational status: employed Travel in the last 8 weeks: None Other Medical History Have you received the Flu Vaccine for this season: No Have you received the Pneumonia Vaccine: No ROS Obtained: Yes All systems reviewed & no additional complaints except as documented Physical Exam General General appearance: alert and in no apparent distress Head Head exam: atraumatic and normocephalic Eye Eye exam: Present normal appearance and EOMI Chest Chest inspection: Present symmetric chest wall rise Respiratory Respiratory exam: Present normal lung sounds bilaterally; Absent wheezes or stridor Cardiovascular Cardiovascular exam: Present regular rate and normal rhythm; Absent systolic murmur Extremities Exam Extremities exam: Present full ROM and other (Right index finger focal erythema and mild tenderness proximal to nail, several healing superficial abrasions noted along finger. Full range of motion, neurovascularly intact) Neurological Exam Neurological exam: Present alert and oriented X3 Psychiatric Psychiatric exam: Present normal affect and normal mood Skin Skin exam: Present warm and dry Medical Decision Making Medical Records Screening: Per USPSTF and CDC recommendations, given the prevalence of disease in our region, it is our hospital?s policy to screen for HIV and viral Hepatitis for all patients aged 18 and over and those with ongoing risk factors. Michele Inquiry Pt receiving controlled substance: No Michele was queried for this patient: No Vital Signs: 05/21/24 13:23 05/21/24 14:29 05/21/24 15:00 Temperature 98.0 F Temperature Source Oral Pulse Rate 82 75 Pulse Rate [Radial] 80 Respiratory Rate 16 Blood Pressure 114/69 125/69 Blood Pressure [Right Arm] 124/80 Blood Pressure Mean 79 Blood Pressure Mean [Right Arm] 94 Blood Pressure Source [Right Arm] Automatic Cuff Blood Pressure Position [Right Arm] Sitting 02 Sat by Pulse Oximetry 99 97 96 Oxygen Delivery Method Room Air Room Air Room Air Orders (Tests/Meds): ORDERS Category Date Time Status Hand XR right minimum 3 views [XR hand RT min 3V] Stat Exams 05/21/24 14:17 Completed HIV (1&2) Antibody Rapid Stat Lab 05/21/24 14:12 Ordered Hep C Ab with Reflex to RNA Stat Lab 05/21/24 14:12 Ordered Radiology Data #1: Image(s): Hand (Right hand IMPRESSION: No fracture or dislocation. ) Medical Decision Narrative: In summary patient is a 28-year-old male who presents the emergency department for evaluation of right index finger pain. Patient is hemodynamically stable upon arrival. Slight erythema and tenderness proximal to nail on right index finger. Differential diagnosis includes abrasion, fracture, cellulitis. Init ial workup will be conducted with x-ray of hand. Initial workup reviewed by me unremarkable x-ray. Given this patient appropriate for discharge at this time will be discharged with a prescription for bacitracin ointment. Advised to return to the ED for any increased redness, swelling or fever.. I informally interpreted the patient's hand x-ray Critical Care Critical Care Time Critical Care Time: No
[2024-05-21 15:00] VITALS: BP 125/69; PULSE 75; O2SAT 96
[2024-05-21 15:24] VITALS: BP 125/69; PULSE 65; RESP 16; TEMP 36.7; O2SAT 97
== END 2024-05-21 15:25 | disposition home or self-care (01) ==
PROVIDERS: Emergency Provider Emergency Medicine; PCP Family Medicine
DX: M79.644 Pain in right finger(s) (principal)
CPT/HCPCS: 73130; 99284

== ENCOUNTER 2024-07-07 23:16 | Emergency (ER) | payer BC, SELFPAY ==
--- NOTE | 2024-07-07 23:16 | ECG_ITS ---
APPROVED REPORT Exam: Resting ECG HR:84 bpm ECG Measurements Heart Rate [address] 157 P 48 QRSd 88 QRS 85 QT 346 T 47 QTc 387 Conclusion SINUS RHYTHM POSSIBLE RIGHT VENTRICULAR CONDUCTION DELAY [RSR (QR) IN V1/V2] BORDERLINE ECG Electronically signed by : MELISA JACOBSON, 07/08/2024 07:19:01
[2024-07-07 23:17] VITALS: BP 171/83; PULSE 104; RESP 16; TEMP 36.5; O2SAT 100; BMI 23.1
[2024-07-07 23:30] VITALS: BP 144/80; PULSE 81; O2SAT 99
--- NOTE | 2024-07-07 23:31 | HMH.EDGENADL ---
Discharge Plan Disposition Patient Disposition: Home, Self-Care Prescriptions Prescriptions: New doxycycline hyclate 100 mg tablet 100 mg PO BID 5 Days Qty: 10 0RF No Action methylprednisolone [Medrol (Ritesh)] 4 mg tablets,dose pack See Rx Instructions .Route .COMPLEX 6 Days Qty: 21 0RF Rx Instructions: taper pack; bacitracin 500 unit/gram ointment 1 applic topical BID 5 Days Qty: 14 0RF doxycycline hyclate 100 mg tablet 100 mg PO BID 10 Days Qty: 20 0RF Referrals Follow up/Referrals: Provider,Referral, MD [Primary Care Provider] - See instructions Activity Restrictions/Add. Instructions Additional Instructions/Restrictions: Continue to irrigate your ear as discussed. You are still having ear pain tomorrow, consider taking the antibiotics that are prescribed to Nikia Rocha. Please follow-up with your primary care provider. Please return to the emergency department if you develop any new or worsening symptoms or become concerned for your health. Clinical Impressions Clinical Impression: Chest pain, Ear pain, right Print Language Print Language: Belarusian Discharge ED Provider: Leonidas Heredia General Adult HPI General Chief complaint: Chest Pain Stated complaint: Chest Pain Time Seen by Provider: 07/07/24 23:31 Mode of Arrival: Ambulatory Source of Information: Patient Limitations: No Limitations Description of Symptoms (Recalled from ER Triage Doc. by RN): Pt presents to ED for Chest pain that started 2 days ago. Pt states the pain is central and does not radiate. Pt rates pain 3/10. Pt is A&O*4 and friend is bedside. History of Present Illness HPI narrative: 28-year-old male without significant past medical history presents for multiple complaints. He reports he has been having chest pain that started in the right shoulder, moved to the left shoulder and is now in the center of his chest. It has been going on for the last few days and has been constant. He also reports right ear pain which is intermittently severe but currently mild. It has been going on for similar amount of time. Has any significant changes in hearing. Denies any fever chills cough nausea vomiting or other symptoms. No cardiac or pulmonary history per patient. Related Data Previous Rx's ?Medication ?Instructions ?Recorded methylprednisolone 4 mg tablets in See Rx Instructions .Route 02/09/24 a dose pack (Medrol (Ritesh)) .COMPLEX 6 days #21 tabs doxycycline hyclate 100 mg tablet 100 mg PO BID 10 days #20 tabs 04/14/24 bacitracin 500 unit/gram topical 1 applic topical BID 5 days #14 05/21/24 ointment grams doxycycline hyclate 100 mg tablet 100 mg PO BID 5 days #10 tabs 07/08/24 Allergies Allergy/AdvReac Type Severity Reaction Status Date / Time amoxicillin Allergy Verified 05/28/21 13:05 [facility] Disclaimer: The information contained in this section may have been updated after the patient was seen, as this information can be updated by other users. Medical History Heart murmur Asthma Surgical History History of tympanostomy tube placement Social History Smoking Status: Unknown if ever smoked alcohol intake: current alcohol intake frequency: a few times a month current occupational status: employed Travel in the last 8 weeks: None Other Medical History Have you received the Flu Vaccine for this season: No Have you received the Pneumonia Vaccine: No ROS Obtained: Yes All systems reviewed & no additional complaints except as documented Physical Exam General General appearance: alert and in no apparent distress Head Head exam: atraumatic and normocephalic Eye Eye exam: Present normal appearance, PERRL and EOMI ENT ENT exam: Present normal oropharynx and normal external ear exam; Absent TM's normal bilaterally (TMs occluded by wax bilaterally) Neck Neck exam: Present normal inspection and full ROM Chest Chest inspection: Present normal inspection and symmetric chest wall rise; Absent tenderness Respiratory Respiratory exam: Present normal lung sounds bilaterally; Absent respiratory distress Cardiovascular Cardiovascular exam: Present regular rate and normal rhythm Abdominal Exam Abdominal exam: Present soft; Absent distention, tenderness or guarding Extremities Exam Extremities exam: Present normal inspection; Absent edema or joint swelling Back Exam Back exam: Present normal inspection; Absent tenderness Neurological Exam Neurological exam: Present alert and oriented X3; Absent motor sensory deficit Psychiatric Psychiatric exam: Present normal affect and normal mood Skin Skin exam: Present warm, dry and normal color Lymphatic Lymphatic Findings: no adenopathy Medical Decision Making Medical Records Medical records reviewed: Yes I reviewed the patient's medical records. Screening: Per USPSTF and CDC recommendations, given the prevalence of disease in our region, it is our hospital?s policy to screen for HIV and viral Hepatitis for all patients aged 18 and over and those with ongoing risk factors. Michele Inquiry Pt receiving controlled substance: No Michele was queried for this patient: No Vital Signs: 07/07/24 23:17 12 23:30 07/08/24 00:00 Temperature 97.7 F Temperature Source Oral Pulse Rate 81 76 Pulse Rate [Left] 104 H Respiratory Rate 16 Blood Pressure 144/80 H 130/79 Blood Pressure [Right Arm] 171/83 H Blood Pressure Mean 101 96 Blood Pressure Mean [Right Arm] 112 02 Sat by Pulse Oximetry 100 99 98 Oxygen Delivery Method Room Air 07/08/24 00:30 07/08/24 00:40 07/08/24 00:40 Temperature 97.9 F Temperature Source Oral Pulse Rate 74 73 82 Pulse Rate [Left] Respiratory Rate 16 Blood Pressure 155/80 H 155/80 H Blood Pressure [Right Arm] Blood Pressure Mean 96 Blood Pressure Mean [Right Arm] 02 Sat by Pulse Oximetry 99 Oxygen Delivery Method Room Air Lab Data Lab results reviewed: Yes I reviewed the patient's lab results. Lab Results 07/07/24 23:15: WBC 7.8, RBC 5.27, Hgb 16.3, Hct 46.1, MCV 87.5, MCH 30.9, MCHC 35.4, RDW 11.9, Plt Count 232, MPV 10.7 H, Neut % (Auto) 60.5, Lymph % (Auto) 30.6, [place] % (Auto) 6.3, Eos % (Auto) 1.7, Baso % (Auto) 0.6, Neut # (Auto) 4.7, Lymph # (Auto) 2.4, [place] # (Auto) 0.5, Eos # (Auto) 0.1, Baso # (Auto) 0.1, Sodium 141, Potassium 3.9, Chloride 106, Carbon Dioxide 30, Anion Gap 8.9, BUN 22 H, Creatinine 0.70, Estimated Creat Clear 139, Estimated GFR 136, Est GFR ( Amer) 165, Glucose 101 H, Calcium 9.5, Total Bilirubin 0.8, AST 56, ALT 41, Alkaline Phosphatase 64, Troponin I < 0.01, Total Protein 7.5, Albumin 4.8, Globulin 2.7, Albumin/Globulin Ratio 1.8 07/08/24 : D-Dimer 0.50 07/07/24 23:15 07/07/24 23:15 Orders (Tests/Meds): ORDERS Category Date Time Status CXR --portable [XR chest portable] Stat Exams 07/07/24 23:45 Completed CBC w/Auto Diff [Complete Blood Count Auto Diff] Stat Lab 07/07/24 23:15 Completed CMP [Comprehensive Metabolic Panel] Stat Lab 07/07/24 23:15 Completed D-Dimer Stat Lab 07/08/24 Completed HIV Combo Stat Lab 07/07/24 23:15 Received Hep C Ab with Reflex to RNA Stat Lab 07/07/24 23:31 Received Troponin I Q3H Lab 07/07/24 23:15 Completed ECG Data Tracing #1: I reviewed this ECG and interpreted as documented below: Sinus rhythm, rate of 84, no significant ST or T wave changes, no evidence of arrhythmia. ECG initial impression date: 07/07/24 ECG initial impression time: 23:17 HEART Score History (anamnesis): Slightly suspicious ECG: Normal Age: <45 years Risk factors: No known risk factors Troponin: </= normal limit HEART Score: 0 Medical Decision Narrative: 28-year-old male without significant past medical history presents for chest pain and right ear pain for the last couple of days. History was obtained via interactive discussion with patient, chart review. On arrival, patient is [afebrile, hemodynamically stable, satting appropriately, alert, oriented x4, GCS 15], moving all extremities spontaneously. Full physical exam performed and significant for clear lungs bilaterally, TMs occluded by wax bilaterally, otherwise normal exam. Differential includes but is not limited to ACS, PE musculoskeletal pain, GERD, esophageal spasm, pleurisy, otitis media, otitis externa, mastoiditis. We are washing the ears out to obtain views of the TMs. Cannot PERC out patient to tachycardia to 104 on arrival. No significant concern for ACS based on history exam and EKG. Patient was not given aspirin on arrival.. Workup initiated including CBC CMP single troponin D-dimer chest x-ray. On re-evaluation, patient [remains afebrile, HD stable.] Laboratory workup independently interpreted by me and significant for negative initial troponin, negative D-dimer, labs otherwise unremarkable.. Imaging independently interpreted by me and significant for no evidence of pneumonia, pneumothorax or other abnormality.. See radiology read for full review of final results. EKG independently interpreted by me and significant for normal sinus rhythm. Despite irrigation and attempted debridement, I was unable to remove all of the wax from the right ear to obtain a good view of the TM. Rather than pursue further debridement and risk of TM injury, I instructed the patient to continue irrigation and soaking at home to get the earwax out. I sent a prescription to his pharmacy for doxycycline (penicillin allergy) to treat a presumptive ear infection which I instructed him to begin taking if his ear pain continues despite cleaning his ears now. Patient was discharged in stable condition with return precautions. Procedures Risk/Benefits of Procedure(s) Were Explained: Yes Critical Care Critical Care Time Critical Care Time: No
--- NOTE | 2024-07-07 23:45 | XR_ITS ---
PROCEDURE INFORMATION: Exam: XR Chest Exam date and time: 07/08/2024 12:01 AM Age: 28 years old Clinical indication: Pain; Chest pressure; Additional info: Cp TECHNIQUE: Imaging protocol: Radiologic exam of the chest. Views: 1 view. COMPARISON: CT ANGIO CHEST 11/12/2020 4:18 PM FINDINGS: Lungs: Unremarkable. No consolidation. Pleural spaces: Unremarkable. No pleural effusion. No pneumothorax. Heart/Mediastinum: Unremarkable. No cardiomegaly. Bones/joints: Unremarkable. IMPRESSION: No acute findings.
[2024-07-07 23:55] LABS: Eosinophils % 1.7 % (0.1-12.0); Hematocrit 46.1 % (42.0-52.0); Hemoglobin 16.3 g/dL (14.1-18.0); Lymphocytes % 30.6 % (10-50); Mean Corpuscular HGB Conc 35.4 g/dL (31.8-35.4); Mean Corpuscular Hemoglobin 30.9 pg (27.0-31.2); Mean Corpuscular Volume 87.5 fl (80-94); Mean Platelet Volume 10.7 fl (7.4-10.4); Monocytes % 6.3 % (1.7-9.3); Neutrophils % 60.5 % (37.0-80.0); Platelet Count 232 K/mm3 (142-424); Red Blood Count 5.27 M/mm3 (4.60-6.20); Red Cell Distribution Width 11.9 % (11.5-17.5); White Blood Count 7.8 K/mm3 (4.8-10.8)
[2024-07-07 23:56] LABS: Basophils # 0.1 K/mm3 (0-0.2); Basophils % 0.6 % (0.1-2.0); Eosinophils # 0.1 K/mm3 (0.0-0.4); Lymphocytes # 2.4 K/mm3 (0.7-4.5); Monocytes # 0.5 K/mm3 (0.1-1.0); Neutrophils # 4.7 K/mm3 (1.8-7.8)
[2024-07-07 23:57] LABS: Alanine Aminotransferase 41 U/L (12-78); Albumin Level 4.8 g/dl (3.5-5.0); Albumin/Globulin Ratio 1.8 (1.1-1.8); Alkaline Phosphatase 64 U/L (38-126); Anion Gap 8.9 mEq/L (5-15); Aspartate Amino Transferase 56 U/L (17-59); Bilirubin,Total 0.8 mg/dl (0.2-1.3); Blood Urea Nitrogen 22 mg/dl (9-20); Calcium 9.5 mg/dl (8.4-10.2); Carbon Dioxide 30 mmol/L (22.0-30.0); Chloride 106 mmol/L (98-107); Creatinine Clearance Estimated 139 mL/min (50-200); Estimated Glomerular Filt Rate 136 ml/min (>60); GFR (African American) 165 ML/MIN (>60); Globulin 2.7 g/dL (1.3-3.2); Glucose 101 mg/dl (74-100); Potassium 3.9 mmoL/L (3.5-5.1); Sodium 141 mmol/L (136-145); Total Protein,Serum 7.5 g/dl (6.3-8.2)
[2024-07-08] VITALS: BP 130/79; PULSE 76; O2SAT 98
[2024-07-08 00:09] LABS: Troponin I < 0.01 ng/ml (0.00-0.034)
[2024-07-08 00:30] VITALS: BP 155/80; PULSE 74; O2SAT 99
[2024-07-08 00:40] VITALS: BP 155/80; PULSE 73; PULSE 82; RESP 16; TEMP 36.6; O2SAT 98
[2024-07-08 01:51] LABS: HIV Combo NEGATIVE (Negative)
[2024-07-10 10:08] LABS: HCV Ab Non Reactive (Non Reactive)
== END 2024-07-08 00:44 | disposition home or self-care (01) ==
PROVIDERS: Emergency Provider Emergency Medicine
DX: R07.9 Chest pain, unspecified (principal); H92.01 Otalgia, right ear; M25.511 Pain in right shoulder; M25.512 Pain in left shoulder
CPT/HCPCS: 71045; 80053; 84484; 85025; 85378; 86803; 87389; 93005; 99284

== ENCOUNTER 2024-12-10 00:16 | Emergency (ER) | payer SELFPAY ==
--- NOTE | 2024-12-10 00:22 | HMH.EDGENADL ---
Discharge Plan Disposition Patient Disposition: Home, Self-Care Prescriptions Prescriptions: No Action methylprednisolone [Medrol (Ritesh)] 4 mg tablets,dose pack See Rx Instructions .Route .COMPLEX 6 Days Qty: 21 0RF Rx Instructions: taper pack; bacitracin 500 unit/gram ointment 1 applic topical BID 5 Days Qty: 14 0RF doxycycline hyclate 100 mg tablet 100 mg PO BID 5 Days Qty: 10 0RF doxycycline hyclate 100 mg tablet 100 mg PO BID 10 Days Qty: 20 0RF Referrals Follow up/Referrals: Goyo Mak MD [Primary Care Provider] - See instructions Activity Restrictions/Add. Instructions Additional Instructions/Restrictions: Please start taking loratadine and using Flonase daily. Please follow-up with your primary care provider. Please return to the emergency department if you develop any new or worsening symptoms or become concerned for your health. Clinical Impressions Clinical Impression: Allergic rhinitis Print Language Print Language: Frisian Discharge ED Provider: Leonidas Heredia General Adult HPI General Chief complaint: Upper Respiratory Infection Stated complaint: runny nose, sneezing, cough Time Seen by Provider: 12/10/24 00:21 History of Present Illness HPI narrative: Patient presents for sneezing. Denies any other complaints. Related Data Previous Rx's ?Medication ?Instructions ?Recorded methylprednisolone 4 mg tablets in See Rx Instructions .Route 02/09/24 a dose pack (Medrol (Ritesh)) .COMPLEX 6 days #21 tabs doxycycline hyclate 100 mg tablet 100 mg PO BID 10 days #20 tabs 04/14/24 bacitracin 500 unit/gram topical 1 applic topical BID 5 days #14 05/21/24 ointment grams doxycycline hyclate 100 mg tablet 100 mg PO BID 5 days #10 tabs 07/08/24 Allergies Allergy/AdvReac Type Severity Reaction Status Date / Time amoxicillin Allergy Verified 05/28/21 13:05 [facility] Disclaimer: The information contained in this section may have been updated after the patient was seen, as this information can be updated by other users. Medical History Heart murmur Asthma Surgical History History of tympanostomy tube placement Social History Smoking Status: Unknown if ever smoked alcohol intake: current alcohol intake frequency: a few times a month current occupational status: employed Travel in the last 8 weeks?: None Have you lived/traveled outside [place] in past 30 days?: No Contact w/someone who lives/traveled outside [place] past 30 days?: No Exposure to someone with infectious disease in past 14 days?: No Do you have a fever (greater than 100.4 F or 38 C)?: No Have you tested positive for COVID-19?: No Exposed to someone with COVID-19 in past 14 days?: No Do you have a sore throat?: No Do you have a cough?: Yes Do you have any weakness?: No Do you have any diarrhea?: No Are you experiencing any unusual bleeding?: No Do you have any muscle aches/pain?: No Do you have any abdominal pain?: No Are you experiencing loss of taste or smell?: No Other Medical History Have you received the Flu Vaccine for this season: No Have you received the Pneumonia Vaccine: No ROS Obtained: Yes All systems reviewed & no additional complaints except as documented Physical Exam General General appearance: alert and in no apparent distress Head Head exam: atraumatic and normocephalic Eye Eye exam: Present normal appearance, PERRL and EOMI ENT ENT exam: Present normal oropharynx and normal external ear exam Neck Neck exam: Present normal inspection and full ROM Chest Chest inspection: Present normal inspection and symmetric chest wall rise; Absent tenderness Respiratory Respiratory exam: Present normal lung sounds bilaterally; Absent respiratory distress Cardiovascular Cardiovascular exam: Present regular rate and normal rhythm Abdominal Exam Abdominal exam: Present soft; Absent distention, tenderness or guarding Extremities Exam Extremities exam: Present normal inspection; Absent edema or joint swelling Back Exam Back exam: Present normal inspection; Absent tenderness Neurological Exam Neurological exam: Present alert and oriented X3; Absent motor sensory deficit Psychiatric Psychiatric exam: Present normal affect and normal mood Skin Skin exam: Present warm, dry and normal color Lymphatic Lymphatic Findings: no adenopathy Medical Decision Making Medical Records Medical records reviewed: Yes I reviewed the patient's medical records. Screening: Per USPSTF and CDC recommendations, given the prevalence of disease in our region, it is our hospital?s policy to screen for HIV and viral Hepatitis for all patients aged 18 and over and those with ongoing risk factors. Michele Inquiry Pt receiving controlled substance: No Michele was queried for this patient: No Vital Signs: 12/10/24 00:25 12/10/24 00:33 Temperature 97.8 F 97.8 F Temperature Source Oral Oral Pulse Rate 75 Pulse Rate [Left] 75 Respiratory Rate 18 18 Blood Pressure 132/85 Blood Pressure [Right Arm] 132/85 Blood Pressure Mean [Right Arm] 100 02 Sat by Pulse Oximetry 99 Oxygen Delivery Method Room Air Room Air Lab Data Lab results reviewed: Yes I reviewed the patient's lab results. Medical Decision Narrative: 29-year-old male without significant past medical history presents for sneezing. He reports has been sneezing for the last 2 weeks or so. Presentation is consistent with allergies. He was instructed to start taking allergy medication. Procedures Risk/Benefits of Procedure(s) Were Explained: Yes Critical Care Critical Care Time Critical Care Time: No
[2024-12-10 00:25] VITALS: BP 132/85; PULSE 75; RESP 18; TEMP 36.6; O2SAT 99; BMI 24.9
[2024-12-10 00:33] VITALS: BP 132/85; PULSE 75; RESP 18; TEMP 36.6; O2SAT 99
== END 2024-12-10 00:36 | disposition home or self-care (01) ==
PROVIDERS: Emergency Provider Emergency Medicine; PCP Family Medicine
DX: J30.9 Allergic rhinitis, unspecified (principal); R09.81 Nasal congestion
CPT/HCPCS: 99282